=== PATIENT | female | born 1960 | race Caucasian/White ===

== ENCOUNTER 2024-08-03 13:48 | Inpatient (IN) | payer SELFPAY ==
[2024-08-03] VITALS (16 sets, daily range): BP systolic 10–124; BP diastolic 56–104; BMI 28.2
[2024-08-03] MEDS: LOVENOX 40 MG SC ×2 (06:49→18:32)
[2024-08-03] MEDS: NORMOSOL-R/PLASMALYTE-A 1000 IV (06:53)
[2024-08-03] MEDS: DILAUDID 0.5 MG IV ×2 (13:49→14:53)
[2024-08-03] MEDS: DILAUDID 0.25 MG IV ×3 (16:07→17:56)
[2024-08-03] MEDS: NORCO 7.5/325 2 TABLET PO (18:52)
[2024-08-03] MEDS: KEFLEX 500 MG PO (20:49)
[2024-08-03] MEDS: DILAUDID 1 MG IV (20:49)
[2024-08-04] MEDS: DILAUDID 1 MG IV ×4 (00:08→09:35)
[2024-08-04] MEDS: NORCO 7.5/325 2 TABLET PO ×2 (02:23→08:15)
[2024-08-04 07:25] VITALS: BP 118/51
[2024-08-04] MEDS: VALTREX 1000 MG PO (08:12)
[2024-08-04] MEDS: KEFLEX 500 MG PO (08:12)
--- NOTE | 2024-08-04 10:47 | CM ---
CM following re: discharge planning.
Reviewed pt's chart, met with pt and pt's Chaim at bedside.
Pt is a 64 year old female, admitted with primary dx of Cosmetic rhytidectomy Full Face TCA.
Pt reports she lives with 2SH, 3 steps to enter, son lives 30 seconds away and helps as needed. Pt described herself as independent in all areas [employer]. No DME, VN or SNF history.
Discharge order noted. Pt is aware, expressed her agreement with discharge. Pt's stated he will transport his spouse home.
D/c plan: home with no after care VN needs. to transport.
[2024-08-04 11:31] VITALS: BP 116/62
== END 2024-08-04 11:48 | disposition home or self-care (01) | DRG 581 ==
LOC: 2 NORTH 13:48
PROVIDERS: ADMITTING PHYSICIAN Otolaryngology
PROC: 3E0 Administration, Physiological Systems and Anatomical Regions, Introduction (ICD-10-PCS; 2024-08-03)
PROC: 0W020ZZ Alteration of Face, Open Approach (ICD-10-PCS; 2024-08-03)
DX: Z41.1 Encounter for cosmetic surgery (principal)
CPT/HCPCS: C1729